=== PATIENT | male | born 1960 | race Caucasian/White ===

== ENCOUNTER → 2019-04-20 | Outpatient (CLI) | payer OTHER | LOC: RAD 12:37 | PROVIDERS: ATTEND Internal Medicine Critical Care Medicine | DX: R09.02 Hypoxemia (principal); J45.909 Unspecified asthma, uncomplicated; J42 Unspecified chronic bronchitis; G47.33 Obstructive sleep apnea (adult) (pediatric); G47.09 Other insomnia; Z86.718 Personal history of other venous thrombosis and embolism | CPT/HCPCS: 93306; 94060; 94640; 94727; 94729 ==

== ENCOUNTER → 2021-02-12 | Outpatient (CLI) | payer OTHER | LOC: RAD 15:39 | PROVIDERS: ATTEND Internal Medicine Critical Care Medicine | DX: R09.02 Hypoxemia (principal); U07.1 COVID-19; E06.2 Chronic thyroiditis with transient thyrotoxicosis; J42 Unspecified chronic bronchitis; J45.909 Unspecified asthma, uncomplicated; G47.33 Obstructive sleep apnea (adult) (pediatric); G47.09 Other insomnia; E66.9 Obesity, unspecified; Z86.718 Personal history of other venous thrombosis and embolism | CPT/HCPCS: 71046 ==

== ENCOUNTER → 2022-10-04 | Outpatient (CLI) | payer OTHER | LOC: CT 14:24 | PROVIDERS: ATTEND Internal Medicine Critical Care Medicine | DX: R09.02 Hypoxemia (principal); J42 Unspecified chronic bronchitis; U07.1 COVID-19; G47.33 Obstructive sleep apnea (adult) (pediatric); G47.09 Other insomnia; R06.2 Wheezing; E66.9 Obesity, unspecified; Z86.718 Personal history of other venous thrombosis and embolism | CPT/HCPCS: 71250 ==

== ENCOUNTER → 2024-12-07 | Outpatient (REF) | payer OTHER | LOC: CT 15:27 | PROVIDERS: ATTEND Nurse Practitioner Family | DX: G47.33 Obstructive sleep apnea (adult) (pediatric) (principal); Z87.891 Personal history of nicotine dependence | CPT/HCPCS: 71250 ==